=== PATIENT | female | born 1965 | race Caucasian/White ===

== ENCOUNTER 2017-02-28 08:54 | Outpatient (CLI) | payer BC ==
[2017-02-28 10:41] LABS: Hematocrit 44.1 % (36.0-47.0); Mean Platelet Volume 6.3 fL (7.4-10.4); Red Blood Cell (RBC) Count 4.47 mill/uL (4.20-5.40); White Blood Cell (WBC) Count 5.5 thou/uL (4.8-10.8)
[2017-02-28 11:04] LABS: Anion Gap 10 mmol/L (10-20); BUN (Urea Nitrogen) 10 mg/dL (9.8-20.1); Calc. Creatinine Clearance 0 mL/min (70-130); Carbon Dioxide 29 mmol/L (22-29); Chloride 104 mmol/L (98-107); Estimated GFR-MDRD 85
--- NOTE | 2017-03-02 17:48 | EKG ---
Test Reason : Blood Pressure : / mmHG Vent. Rate : 060 BPM Atrial Rate : 060 BPM P-R Int : 154 ms QRS Dur : 094 ms QT Int : 434 ms P-R-T Axes : 074 072 006 degrees QTc Int : 434 ms Normal sinus rhythm Anteroseptal infarct , age undetermined Abnormal ECG No previous ECGs available Confirmed by KANDI KING ([id number]) on 03/02/2017 5:47:59 PM Referred By: JEROME Confirmed By:KANDI KING
== END 2017-02-28 08:55 | disposition home or self-care (01) ==
LOC: LABBT 08:54
PROVIDERS: ATTEND Neurological Surgery
DX: Z01.818 Encounter for other preprocedural examination (principal); M43.16 Spondylolisthesis, lumbar region
CPT/HCPCS: 80048; 85027; 93005; 93010

== ENCOUNTER 2017-03-10 05:39 | Day surgery (SDC) | payer BC ==
[2017-02-28 09:31] VITALS: BMI 23.6
[2017-03-10] MEDS ORDERED: Bacitracin Zinc Ointment 30 gm TUBE ONE (06:26)
[2017-03-10] MEDS ORDERED: Sodium Chloride 0.9% 10 ML ONE (06:26)
[2017-03-10] MEDS ORDERED: Fentanyl 100 MCG/2 ML VIAL ONE ×3 (06:51→09:34)
[2017-03-10] MEDS ORDERED: Ketorolac Tromethamine 30 MG/ML VIAL ONE (07:30)
[2017-03-10] MEDS ORDERED: Ondansetron HCl/PF 4 MG/2 ML Vial ONE (07:30)
[2017-03-10] MEDS ORDERED: Metoclopramide HCl 10 MG/2 ML VIAL ONE (07:30)
[2017-03-10] MEDS ORDERED: Dexamethasone 20 MG/5 ML VIAL ONE (07:30)
[2017-03-10] MEDS ORDERED: Lidocaine 1% PF 5 ML VIAL ONE (07:30)
[2017-03-10] MEDS ORDERED: ePHEDrine/0.9% NaCl/PF SYRINGE 50 mg/10 ml ONE (07:30)
[2017-03-10] MEDS ORDERED: Propofol 200 MG/20 ML VIAL ONE (07:30)
[2017-03-10] MEDS ORDERED: Succinylcholine Chloride 20 MG/ML 10 ml SYRINGE FS ONE (07:30)
[2017-03-10] MEDS ORDERED: Glycopyrrolate 0.2 MG/ML 5 ML SYRINGE ONE (07:30)
[2017-03-10] MEDS ORDERED: diphenhydrAMINE HCl 50 MG/ML 1 ML VIAL ONE (07:30)
--- NOTE | 2017-03-10 10:38 | OP ---
DATE OF PROCEDURE: 03/10/2017 SURGEON: Babar Webster M.D. DATA ANALYTICS DEVELOPER: Minesh Bautista PA-C. PROCEDURE: Right L4-L5 laminectomy, facetectomy, foraminotomy, interbody arthrodesis, intravertebra l biomechanical device, local morselized autograft, demineralized bone matrix, posterior lateral art hrodesis and pedicle screw instrumentation L4-L5. PROCEDURE IN DETAIL: The patient was brought into the operating room, intubated. She was rolled in the prone position on gel-filled chest rolls. Incision made exposing L4 and L5 bilaterally and our level was confirmed by x-ray. There was severe L4-5 facet arthropathy as anticipated. We performe d a right L4-L5 laminectomy, facetectomy, and foraminotomy and completely decompressed the neural el ements. Next, the intravertebral disk was incised and debrided in multiple fragments. The bony end plates were decorticated for the purpose of arthrodesis. An appropriately sized intravertebral biom echanical PEEK device was brought into the field, filled with demineralized bone matrix and local mo rselized autograft, and tapped into place securely at L4-5. Next, pedicle screws were placed at rig ht L4 and right L5 using lateral fluoroscopic guidance. A justin was secured between the screws, conne cted by nuts. Compression was applied and the nuts were final tightened. The wound was then extens ively irrigated, immaculate hemostasis was secured. A combination of demineralized bone matrix and local morselized autograft was laid over the left laminar and posterolateral surfaces for the purpos e of arthrodesis. Vancomycin powder was applied and the wound was then closed in anatomic layers.
== END 2017-03-10 12:25 | disposition home or self-care (01) ==
LOC: SDC 05:39
PROVIDERS: ATTEND Neurological Surgery
PROC: 0SG00AJ Fusion of Lumbar Vertebral Joint with Interbody Fusion Device, Posterior Approach, Anterior Column, Open Approach (ICD-10-PCS; principal; 2017-03-10)
DX: M43.16 Spondylolisthesis, lumbar region (principal); E07.9 Disorder of thyroid, unspecified; I44.7 Left bundle-branch block, unspecified; Z79.890 Hormone replacement therapy; Z79.899 Other long term (current) drug therapy; Z88.2 Allergy status to sulfonamides; Z90.711 Acquired absence of uterus with remaining cervical stump; Z90.49 Acquired absence of other specified parts of digestive tract; Z90.722 Acquired absence of ovaries, bilateral; Z98.890 Other specified postprocedural states
CPT/HCPCS: 76001; 96374; A4216; C1713; C1768; J0131; J1100; J1200; J1885; J2001; J2405; J2704; J2765; J3010; J3370; J3490

== ENCOUNTER 2017-03-26 15:13 | Outpatient (CLI) | payer BC ==
--- NOTE | 2017-03-26 18:57 | RAD ---
TWO VIEWS OF THE LUMBAR SPINE 03/26/17 COMPARISON: None. HISTORY: Re-evaluate lumbar spine following surgery. Low back pain extending into the right leg. Spondylosis. FINDINGS: Frontal and lateral imaging of the lumbar spine demonstrates a unilateral L4 and L5 pedicle screws o n the right with a vertically oriented interlocking justin. There is an intervertebral disc device at t he L4-5 level. There is anterolisthesis of L4 on L5 measuring approximately 5 mm. There is no evidence for hardware failure. No acute fracture is seen. IMPRESSION: Postoperative hardware within the lower lumbar spine as above. Anterolisthesis of L4 on L5 measuring 5 mm. POS: KARAN
== END 2017-03-26 15:14 | disposition home or self-care (01) ==
LOC: TBSIIMAG 15:13
PROVIDERS: ATTEND Physician Assistant
DX: M43.06 Spondylolysis, lumbar region (principal); Z98.890 Other specified postprocedural states
CPT/HCPCS: 72100

== ENCOUNTER 2017-04-29 15:24 | Outpatient (CLI) | payer BC ==
--- NOTE | 2017-04-29 18:04 | RAD ---
TWO VIEWS LUMBAR SPINE 04/29/17 COMPARISON: 03/26/17 HISTORY: Lumbar radiculopathy, prior surgery. FINDINGS: There is an intervertebral disc device at the L4-5 level. There is mild anterolisthesis measuring in the 3-4 mm range, less prominent than on the 03/26/17 exam. Unilateral L4 and L5 pedicle screw with ve rtically oriented interlocking justin on the left is unchanged when compared to the prior exam. There is significant facet hypertrophic change on the left at L4-5 and L5-S1, stable. IMPRESSION: No acute findings. Postoperative and degenerative change within the lumbar spine as above. POS: KARAN
== END 2017-04-29 15:25 | disposition home or self-care (01) ==
LOC: TBSIIMAG 15:24
PROVIDERS: ATTEND Neurological Surgery
DX: M43.16 Spondylolisthesis, lumbar region (principal); M47.896 Other spondylosis, lumbar region; Z98.890 Other specified postprocedural states
CPT/HCPCS: 72100

== ENCOUNTER 2017-09-03 07:40 | Outpatient (CLI) | payer BC | END 2017-09-03 07:41 | disposition home or self-care (01) | LOC: BICMAMMO 07:40 | PROVIDERS: ATTEND Student in an Organized Health Care Education/Training Program | DX: Z13.820 Encounter for screening for osteoporosis (principal); N63.21 Unspecified lump in the left breast, upper outer quadrant; M85.88 Other specified disorders of bone density and structure, other site | CPT/HCPCS: 77066; 77080; G0279 ==

== ENCOUNTER 2018-11-16 08:59 | Outpatient (CLI) | payer BC ==
--- NOTE | 2018-11-16 11:20 | ULT ---
ULTRASOUND ABDOMEN: Date: 11/16/18 HISTORY: Abnormal liver function test, abdominal pain. FINDINGS: The liver demonstrates homogeneous echotexture without focal mass or intrahepatic ductal dilatation. The spleen is not satisfactorily visualized. No gallstones, gallbladder wall thickening, or perichole cystic fluid seen. Common duct measures 3 mm in diameter. Pancreas and left kidney appear normal. Dil ated renal pelvis is seen on the right. No free fluid is identified. The visualized portions of the a gerardo and IVC are unremarkable. IMPRESSION: No evidence of cholelithiasis. POS: OFF
== END 2018-11-16 09:00 | disposition home or self-care (01) ==
LOC: BICULT 08:59
PROVIDERS: ATTEND Family Medicine
DX: R10.84 Generalized abdominal pain (principal)
CPT/HCPCS: 76700

== ENCOUNTER 2019-06-11 12:47 | Outpatient (CLI) | payer BC ==
--- NOTE | 2019-06-11 13:46 | CT ---
EXAM: CT chest, abdomen, and pelvis without IV contrast: HISTORY: Hypogammaglobulinemia. COMPARISON: Noncontrast CT abdomen and pelvis on 02/27/2014 FINDINGS: CT THORAX: Lungs: No consolidation, suspicious pulmonary nodule, or mass. Pleura: No pleural effusion. Lymph nodes: Lack of intravenous contrast limits evaluation the mediastinum and hilar structures, no definite enlarged lymph node is seen. There is no evidence of axillary lymphadenopathy. Mediastinum: Limited due to lack of intravenous contrast, no gross abnormality is seen. Chest wall: Bilateral breast prostheses are identified. CT ABDOMEN AND PELVIS: Likely changes contrast limits sensitivity for evaluation of the parenchymal organs. Liver: Grossly normal nonenhanced CT appearance. Gallbladder: Within normal limits. Pancreas: Grossly normal nonenhanced CT appearance. Spleen:Grossly normal nonenhanced CT appearance. Adrenal glands: Grossly normal nonenhanced CT appearance. Kidneys: Grossly normal nonenhanced CT appearance. No renal calculi are seen, and there is no hydrone phrosis. Urinary Bladder: Partially distended and grossly normal in appearance. Reproductive organs: Suggestion of prior hysterectomy. Bowel: Small bowel is normal in caliber. Adenopathy:Evaluation for lymphadenopathy is limited without IV contrast, but no obvious enlarged lym ph nodes are appreciated. Peritoneum: No free fluid or fluid collection is seen. No free intraperitoneal gas is identified. Abdominal wall: No abnormalities seen. Osseous structures: Postsurgical changes at the L4-5 level are noted with trace grade 1 anterolisthes is of L5 on L5. No suspicious lytic or sclerotic osseous lesions are identified. IMPRESSION: 1. No acute findings are seen in the chest, abdomen, or pelvis on this nonenhanced CT exam. No obviou s enlarged lymph nodes are appreciated.
== END 2019-06-11 12:48 | disposition home or self-care (01) ==
LOC: BICCT 12:47
DX: D80.0 Hereditary hypogammaglobulinemia (principal); D83.9 Common variable immunodeficiency, unspecified
CPT/HCPCS: 71250; 74177

== ENCOUNTER 2021-12-19 12:00 | Outpatient (CLI) | payer BC ==
[2021-12-19 13:36] LABS: #Eosinphils 0.1 10x3/uL (0.0-0.5); #Monocytes 0.3 10x3/uL (0.0-1.1); #Neutrophils 3.5 10x3/uL (1.5-8.4); %Basophils 0.6 % (0.0-2.0); %Eosinophils 1.9 % (0.0-6.0); %Monocytes 4.8 % (0.0-10.0); %Neutrophils 67.3 % (40.0-75.0); Hemoglobin 11.8 g/dL (12.0-15.5); Mean Corpuscular HGB CONC 33.5 g/dL (32.0-36.0); Mean Corpuscular Hemoglobin 32.7 pg (27.0-33.0); Mean Corpuscular Volume 97.5 fl (81.6-98.3); Mean Platelet Volume 9.3 fl (7.4-10.4); Platelet Count 294 10x3/uL (150-450); RBC Distribution Width 12.5 % (11.5-14.5); Red Blood Cell (RBC) Count 3.61 10x6/uL (3.90-5.03); White Blood Cell (WBC) Count 5.2 10x3/uL (3.5-10.5)
[2021-12-19 14:05] LABS: Anion Gap 13 mmol/L (10-20); BUN (Urea Nitrogen) 11 mg/dL (9.8-20.1); Calc. Creatinine Clearance 0 mL/min (70-130); Carbon Dioxide 23 mmol/L (22-29); Chloride 107 mmol/L (98-107); Estimated GFR 100; Glucose 89 mg/dL (70-105); Potassium 4.3 mmol/L (3.5-5.1); Sodium 139 mmol/L (136-145)
== END 2021-12-19 12:01 | disposition home or self-care (01) ==
LOC: LABBT 12:00
PROVIDERS: ATTEND Surgery
DX: Z01.812 Encounter for preprocedural laboratory examination (principal); Z20.822 Contact with and (suspected) exposure to COVID-19
CPT/HCPCS: 80048; 85025; 87811

== ENCOUNTER 2021-12-24 11:07 | Day surgery (SDC) | payer BC ==
[2021-12-21 13:47] VITALS: BMI 25.0
[2021-12-24] MEDS ORDERED: Midazolam HCl 2 mg/2 ml Vial ONE (13:49)
[2021-12-24] MEDS ORDERED: Scopolamine 1.5 mg/72 hour Patch ONE (13:49)
[2021-12-24] MEDS ORDERED: Lidocaine 2% PF 5 ML VIAL ONE (14:01)
[2021-12-24] MEDS ORDERED: Bupivacaine/Epinephrine 0.25% 30 ML VIAL ONE (14:01)
[2021-12-24] MEDS ORDERED: CEFAZOLIN 2 GM VIAL ONE (14:14)
[2021-12-24] MEDS ORDERED: Sodium Chloride 0.9% 100 ML ONE (14:14)
[2021-12-24] MEDS ORDERED: fentaNYL Citrate/PF 100 MCG/2 ML SYRINGE ONE (14:15)
[2021-12-24] MEDS ORDERED: Ketorolac Tromethamine 30 MG/ML VIAL ONE (14:27)
[2021-12-24] MEDS ORDERED: Dexamethasone 20 MG/5 ML VIAL ONE (14:27)
[2021-12-24] MEDS ORDERED: PROPOFOL 200 MG/20 ML VIAL ONE (14:27)
[2021-12-24] MEDS ORDERED: Lidocaine 1% PF 5 ML VIAL ONE (14:27)
[2021-12-24] MEDS ORDERED: Ondansetron PF 4 MG/2 ML Vial ONE (14:27)
== END 2021-12-24 16:25 | disposition home or self-care (01) ==
LOC: SDC 11:07
PROVIDERS: ATTEND Surgery
PROC: 06BY3ZC Excision of Hemorrhoidal Plexus, Percutaneous Approach (ICD-10-PCS; principal; 2021-12-24)
DX: K64.4 Residual hemorrhoidal skin tags (principal); K64.8 Other hemorrhoids; E03.9 Hypothyroidism, unspecified; Z79.890 Hormone replacement therapy; Z79.899 Other long term (current) drug therapy; Z88.2 Allergy status to sulfonamides
CPT/HCPCS: 88304; J0690; J1100; J1885; J2001; J2250; J2405; J2704; J3490

== ENCOUNTER 2022-01-29 11:46 | Outpatient (CLI) | payer BC | END 2022-01-29 11:47 | disposition home or self-care (01) | LOC: BICRAD 11:46 | PROVIDERS: ATTEND Family Medicine | DX: J20.9 Acute bronchitis, unspecified (principal) | CPT/HCPCS: 71046 ==

== ENCOUNTER 2023-10-23 21:09 | Emergency (ER) | payer BC ==
[2023-10-23 22:44] LABS: #Basophils 0.03 10x3/uL (0.0-0.2); %Basophils 0.6 % (0.0-1.0); %Lymphocytes 28.6 % (21.0-51.0); %Monocytes 10.2 % (0.0-10.0); %Neutrophils 57.2 % (42.0-75.0); Hematocrit 39.7 % (36.0-47.0); Hemoglobin 13.5 g/dL (12.0-16.0); Mean Corpuscular Hemoglobin 32.8 pg (27.0-31.0); Mean Corpuscular Volume 96.6 fL (78.0-98.0); Mean Platelet Volume 8.5 fL (7.4-10.4); Platelet Count 413 10x3/uL (130-400); RBC Distribution Width 12.8 % (11.5-14.5); Red Blood Cell (RBC) Count 4.11 mill/uL (4.20-5.40)
[2023-10-23 23:09] LABS: ALT (SGPT) 19 U/L (8-55); AST (SGOT) 23 U/L (5-34); Albumin 3.9 g/dL (3.5-5.0); Alkaline Phosphatase 60 U/L (40-110); Anion Gap 14 mmol/L (10-20); BUN (Urea Nitrogen) 10 mg/dL (9.8-20.1); Bilirubin, Total 0.2 mg/dL (0.2-1.2); Calc. Creatinine Clearance 0 mL/min (70-130); Calcium 9.4 mg/dL (7.8-10.44); Carbon Dioxide 25 mmol/L (22-29); Chloride 105 mmol/L (98-107); Estimated GFR 99; Globulin 3.1 g/dL (2.4-3.5); Glucose 98 mg/dL (70-105); Potassium 3.1 mmol/L (3.5-5.1); Sodium 141 mmol/L (136-145)
[2023-10-23 23:12] LABS: Troponin I 0.011 ng/mL (< 0.028)
== END 2023-10-24 01:02 | disposition home or self-care (01) ==
LOC: ERS 21:09
DX: R42 Dizziness and giddiness (principal); I10 Essential (primary) hypertension
CPT/HCPCS: 36415; 71045; 80053; 84484; 85025; 93005

== ENCOUNTER 2024-04-08 15:09 | Outpatient (CLI) | payer BC | END 2024-04-08 15:10 | disposition home or self-care (01) | LOC: BICRAD 15:09 | PROVIDERS: ATTEND Family Medicine | DX: J20.9 Acute bronchitis, unspecified (principal) | CPT/HCPCS: 71046 ==